=== PATIENT | male | born 1980 | race Hispanic/Latino ===

== ENCOUNTER 2022-02-19 12:01 | Outpatient (CLI) | payer OTHER, SELFPAY ==
[~2022-02-19 12:01] MED LIST: Iopamidol 300 61% 100 ML VIAL FS ONE; Magnevist 469MG/ML 20 ML VIAL ONE
== END 2022-02-19 12:02 | disposition home or self-care (01) ==
LOC: CSHCT 12:01
PROVIDERS: ATTEND Internal Medicine
DX: C20 Malignant neoplasm of rectum (principal)
CPT/HCPCS: 71260; 72197